=== PATIENT | male | born 1975 | race American Indian/Alaskan Native ===

== ENCOUNTER 2020-02-06 09:56 | Inpatient (IN) | payer OTHER ==
[2020-02-06] MEDS ORDERED: methylPREDNISolone Sod Succinate 125 MG/2 ML INJ IV ONE (10:23)
[2020-02-06] MEDS ORDERED: ONDANSETRON 4 MG/2 ML INJ IV ONE (10:23)
[2020-02-06] MEDS ORDERED: cefTRIAXone/NS 1 GM/50 ML 1 GM/50 ML BAG IV ONE (10:23)
[2020-02-06] MEDS ORDERED: SODIUM CHLORIDE 0.9% 1000 ML 1,000 ML IV ONE (10:23)
--- NOTE | 2020-02-06 10:26 | Emergency Department Report ---
HPI - General Time Seen by Provider: 02/06/20 10:06 - HPI HPI: This is a 44-year-old -Citizen Of [place] male presents to the emergency department via EMS from home with the complaint of shortness of breath, nausea with vomiting, fever, body aches, chills and is known to be Covid positive. Patient has had the symptoms getting progressively worse over the past 5 to 6 days and was just recently diagnosed to be positive for COVID-19 at [facility]. He was discharged home on azithromycin and has been taking that medication compliantly. The patient also took some Tylenol late last night, early this morning. The shortness of breath worsens with any exertion. The p atient also complains of a mixed dry and productive cough. He denies any past medical history. No recent travel or known sick contacts at home. He denies any tobacco or illicit drug use. ED Past Medical Hx - Medications Home Medications: Home Medications Medication Instructions Recorded Confirmed Last Taken Type No Known Home Medications [No 02/06/20 02/06/20 Unknown History Reported Home Medications] ED Review of Systems ROS: Stated complaint: FEVER/COVID Other details as noted in HPI Comment: All other systems reviewed and negative Constitutional: chills, fever, weakness Eyes: denies: eye pain, vision change ENT: denies: ear pain, throat pain Respiratory: cough, shortness of breath Cardiovascular: palpitations. denies: edema Gastrointestinal: nausea, vomiting. denies: abdominal pain Genitourinary: denies: dysuria, discharge Musculoskeletal: back pain, myalgia. denies: joint swelling Skin: denies: rash, lesions Neurological: denies: numbness, paresthesias Physical Exam - Physical Exam Physical Exam: GENERAL: Patient is ill-appearing. HENT: Normocephalic. Atraumatic. Patient has moist mucous membranes. EYES: Extraocular motions are intact. NECK: Supple. Trachea is midline. CHEST/LUNGS: Mild rhonchi heard bilaterally. There is tachypnea and accessory muscle use. Conversational dyspnea. HEART/CARDIOVASCULAR: Regular. There is mild tachycardia. There is no murmur. ABDOMEN: Abdomen is soft, nontender. Patient has normal bowel sounds. There is no abdominal distention. SKIN: Skin is warm and dry. NEURO: The patient is awake, alert, and oriented. The patient is cooperative. The patient has no focal neurologic deficits. Normal speech. MUSCULOSKELETAL: There is no tenderness or deformity. There is no limitation range of motion. ED Medical Decision Making - Lab Data Result diagrams: 02/06/20 10:34 02/06/20 10:34 Lab Results 02/06/20 02/06/20 02/06/20 Range/Units 10:34 10:34 10:34 WBC (4.5-11.0) K/mm3 RBC (3.65-5.03) M/mm3 Hgb (11.8-15.2) gm/dl Hct (35.5-45.6) % MCV (84-94) fl MCH (28-32) pg MCHC (32-34) % RDW (13.2-15.2) % Plt Count (140-440) K/mm3 Lymph % (Auto) (13.4-35.0) % [place] % (Auto) (0.0-7.3) % Eos % (Auto) (0.0-4.3) % Baso % (Auto) (0.0-1.8) % Lymph # (Auto) (1.2-5.4) K/mm3 [place] # (Auto) (0.0-0.8) K/mm3 Eos # (Auto) (0.0-0.4) K/mm3 Baso # (Auto) (0.0-0.1) K/mm3 Seg Neutrophils % (40.0-70.0) % Seg Neutrophils # (1.8-7.7) K/mm3 PT 14.3 (12.2-14.9) Sec. INR 1.12 (0.87-1.13) D-Dimer 725.16 H (0-234) ng/mlDDU Sodium (137-145) mmol/L Potassium (3.6-5.0) mmol/L Chloride (98-107) mmol/L Carbon Dioxide (22-30) mmol/L Anion Gap mmol/L BUN (9-20) mg/dL Creatinine (0.8-1.3) mg/dL Estimated GFR ml/min BUN/Creatinine Ratio % Glucose (75-100) mg/dL Lactic Acid (0.7-2.0) mmol/L Calcium (8.4-10.2) mg/dL Ferritin 1239.0 H (30.0-300.0) ng/mL Total Bilirubin (0.1-1.2) mg/dL AST (5-40) units/L ALT (7-56) units/L Alkaline Phosphatase (35-129) units/L Lactate Dehydrogenase 386 H (91-180) units/L Troponin T (0.00-0.029) ng/mL C-Reactive Protein 2.40 H (0.00-1.30) mg/dL NT-Pro-B Natriuret Pep (0-450) pg/mL Total Protein (6.3-8.2) g/dL Albumin (3.9-5) g/dL Albumin/Globulin Ratio % Procalcitonin (<0.15) ng/mL 02/06/20 02/06/20 02/06/20 Range/Units 10:34 10:34 10:34 WBC 5.2 (4.5-11.0) K/mm3 RBC 4.47 (3.65-5.03) M/mm3 Hgb 14.8 (11.8-15.2) gm/dl Hct 42.4 (35.5-45.6) % MCV 95 H (84-94) fl MCH 33 H (28-32) pg MCHC 35 H (32-34) % RDW 13.5 (13.2-15.2) % Plt Count 164 (140-440) K/mm3 Lymph % (Auto) 14.8 (13.4-35.0) % [place] % (Auto) 6.2 (0.0-7.3) % Eos % (Auto) 0.0 (0.0-4.3) % Baso % (Auto) 0.2 (0.0-1.8) % Lymph # (Auto) 0.8 L (1.2-5.4) K/mm3 [place] # (Auto) 0.3 (0.0-0.8) K/mm3 Eos # (Auto) 0.0 (0.0-0.4) K/mm3 Baso # (Auto) 0.0 (0.0-0.1) K/mm3 Seg Neutrophils % 78.8 H (40.0-70.0) % Seg Neutrophils # 4.1 (1.8-7.7) K/mm3 PT (12.2-14.9) Sec. INR (0.87-1.13) D-Dimer (0-234) ng/mlDDU Sodium 138 (137-145) mmol/L Potassium 3.8 (3.6-5.0) mmol/L Chloride 102.6 (98-107) mmol/L Carbon Dioxide 26 (22-30) mmol/L Anion Gap 13 mmol/L BUN 15 (9-20) mg/dL Creatinine 1.3 (0.8-1.3) mg/dL Estimated GFR > 60 ml/min BUN/Creatinine Ratio 12 % Glucose 113 H (75-100) mg/dL Lactic Acid (0.7-2.0) mmol/L Calcium 8.6 (8.4-10.2) mg/dL Ferritin (30.0-300.0) ng/mL Total Bilirubin 0.50 (0.1-1.2) mg/dL AST 75 H (5-40) units/L ALT 75 H (7-56) units/L Alkaline Phosphatase 46 (35-129) units/L Lactate Dehydrogenase (91-180) units/L Troponin T < 0.010 (0.00-0.029) ng/mL C-Reactive Protein (0.00-1.30) mg/dL NT-Pro-B Natriuret Pep (0-450) pg/mL Total Protein 8.0 (6.3-8.2) g/dL Albumin 3.7 L (3.9-5) g/dL Albumin/Globulin Ratio 0.9 % Procalcitonin 0.07 (<0.15) ng/mL 02/06/20 02/06/20 Range/Units 10:34 10:34 WBC (4.5-11.0) K/mm3 RBC (3.65-5.03) M/mm3 Hgb (11.8-15.2) gm/dl Hct (35.5-45.6) % MCV (84-94) fl MCH (28-32) pg MCHC (32-34) % RDW (13.2-15.2) % Plt Count (140-440) K/mm3 Lymph % (Auto) (13.4-35.0) % [place] % (Auto) (0.0-7.3) % Eos % (Auto) (0.0-4.3) % Baso % (Auto) (0.0-1.8) % Lymph # (Auto) (1.2-5.4) K/mm3 [place] # (Auto) (0.0-0.8) K/mm3 Eos # (Auto) (0.0-0.4) K/mm3 Baso # (Auto) (0.0-0.1) K/mm3 Seg Neutrophils % (40.0-70.0) % Seg Neutrophils # (1.8-7.7) K/mm3 PT (12.2-14.9) Sec. INR (0.87-1.13) D-Dimer (0-234) ng/mlDDU Sodium (137-145) mmol/L Potassium (3.6-5.0) mmol/L Chloride (98-107) mmol/L Carbon Dioxide (22-30) mmol/L Anion Gap mmol/L BUN (9-20) mg/dL Creatinine (0.8-1.3) mg/dL Estimated GFR ml/min BUN/Creatinine Ratio % Glucose (75-100) mg/dL Lactic Acid 1.70 (0.7-2.0) mmol/L Calcium (8.4-10.2) mg/dL Ferritin (30.0-300.0) ng/mL Total Bilirubin (0.1-1.2) mg/dL AST (5-40) units/L ALT (7-56) units/L Alkaline Phosphatase (35-129) units/L Lactate Dehydrogenase (91-180) units/L Troponin T (0.00-0.029) ng/mL C-Reactive Protein (0.00-1.30) mg/dL NT-Pro-B Natriuret Pep 23.94 (0-450) pg/mL Total Protein (6.3-8.2) g/dL Albumin (3.9-5) g/dL Albumin/Globulin Ratio % Procalcitonin (<0.15) ng/mL - EKG Data -: EKG Interpreted by [facility] EKG shows normal: sinus rhythm, axis, intervals, QRS complexes (LVH), ST-T waves Rate: tachycardia (101 bpm) - EKG Data When compared to previous EKG there are: previous EKG unavailable Interpretation: other (Sinus rhythm, rate of 101 bpm, normal axis, normal intervals, LVH. No ST elevation NV.) - Radiology Data Radiology results: image reviewed interpreted by me: Chest x-ray shows bilateral patchy infiltrates concerning for pneumonia. No cardiomegaly. No pneumothorax. - Medical Decision Making This patient presents to the emergency department with progressively worsening shortness of breath, fatigue, nausea and vomiting after recently being diagnosed with COVID-19. On examination the patient does appear in mild respiratory distress while on room air as the patient displays tachypnea, conversational dyspnea and some accessory muscle use. Initially the patient's room air pulse ox was 92%. He was placed on 3 L oxygen via nasal cannula with some improvement of both his work of breathing and the pulse ox. The patient later was tested with exertion and an ambulatory pulse ox and went down into the high 80s for oxygen saturation after only a few steps. Chest x-ray shows bilateral patchy infiltrates consistent with an atypical pneumonia and consistent with COVID-19. Patient's labs also appear consistent with COVID-19 with elevated inflammatory markers such as D-dimer, ferritin, LDH and CRP. Patient was given IV fluid r esuscitation, Solu-Medrol, Rocephin, azithromycin. He will be admitted to the hospital for further evaluation and treatment and was accepted for admission by the hospitalist, Dr. Milian. Critical Care Time: Yes Critical care time in (mins) excluding proc time.: 35 Critical care attestation.: If time is entered above; I have spent that time in minutes in the direct care of this critically ill patient, excluding procedure time. Critical care time spent on this patient in doing his initial evaluation, multiple reevaluations, ordering and interpretation of labs and imaging, supplemental oxygen for his hypoxia, IV steroids and antibiotics, IV fluid resuscitation, discussions with the hospitalist, multiple discussions with the patient. Critical Care Time: 35 minutes ED Disposition Clinical Impression: Pneumonia due to COVID-19 virus, Hypoxia, Acute respiratory failure due to COVID-19 Disposition: DC-09 OP ADMIT IP TO THIS HOSP Is pt being admited?: Yes Condition: Serious Time of Disposition: 14:45
[2020-02-06] MEDS ORDERED: ACETAMINOPHEN 500 MG TAB PO ONE (10:45)
[2020-02-06 11:08] LABS: Basophils % (Auto) 0.2 % (0.0-1.8); Hematocrit 42.4 % (35.5-45.6); Hemoglobin 14.8 gm/dl (11.8-15.2); Lymphocytes # (Auto) 0.8 K/mm3 (1.2-5.4); Lymphocytes % (Auto) 14.8 % (13.4-35.0); Mean Corpuscular HGB Conc 35 % (32-34); Mean Corpuscular Volume 95 fl (84-94); Monocytes # (Auto) 0.3 K/mm3 (0.0-0.8); Monocytes % (Auto) 6.2 % (0.0-7.3); Platelet Count 164 K/mm3 (140-440); Red Blood Count 4.47 M/mm3 (3.65-5.03); Red Cell Distribution Width 13.5 % (13.2-15.2)
[2020-02-06] MEDS: AZITHROMYCIN 500 MG in SODIUM CHLORIDE 0.9% 250ML 250 ML IV ONE ×2 (11:16→14:52)
[2020-02-06 11:17] LABS: INR 1.12 (0.87-1.13)
--- NOTE | 2020-02-06 11:21 | XRay Report ---
CHEST 1 VIEW 10:32 AM INDICATION / CLINICAL INFORMATION: SOB. COMPARISON: None available. FINDINGS: SUPPORT DEVICES: None. HEART / MEDIASTINUM: The heart size and pulmonary vasculature are normal. LUNGS / PLEURA: There are mild subtle multifocal areas of patchy parenchymal opacity in the right mid to lower lung. There is questionable minimal disease on the left. No pleural effusion. No pneumothor ax. ADDITIONAL FINDINGS: No significant additional findings. IMPRESSION: Mild patchy multifocal parenchymal opacities predominantly on the right. Atypical causes of pneumonia, including viral pneumonia, should be considered. Signer Name: Sanjay Angel MD Signed: 02/06/2020 11:17 AM Workstation Name: [id number]
[2020-02-06 11:29] LABS: Alanine Aminotransferase 75 units/L (7-56); Albumin 3.7 g/dL (3.9-5); BUN/Creatinine Ratio 12; Blood Urea Nitrogen 15 mg/dL (9-20); C-Reactive Protein 2.4 mg/dL (0.00-1.30); Calcium 8.6 mg/dL (8.4-10.2); Hemolysis Index 3
[2020-02-06] MEDS ORDERED: KETOROLAC 30 MG/1 ML INJ IV ONE (11:37)
[2020-02-06] MEDS ORDERED: MORPHINE 4 MG/1 ML INJ IV ONE (12:38)
--- NOTE | 2020-02-06 12:56 | History and Physical Report ---
History of Present Illness Chief complaint: I cant breathe History of present illness: 44 YO Male with Obesity Hypoventilation Syndrome, Coronavirus Infection presents to ED for evaluation. Patient states that he has been "feeling terrible" over the past 6 days with persistently worsening symptoms over the same timeframe. Patient was diagnosed with coronavirus infection at the [facility] approximately 1 week ago and was subsequently discharged home on oral antibiotic therapy. Patient reports compliance with outpatient management with development of the aforementioned worsening symptoms during the same timeframe. Patient knowledges fever, shortness of breath, dry cough, malaise, decreased exercise tolerance, body aches. Patient transported to [facility] via private vehicle for further care and evaluation of the aforementioned symptoms. Patient seen and evaluated in the emergency department. All lab and imaging studies reviewed. Patient found to have fever to 103.0 F, tachypnea with a respiratory rate of 38, a pulse oximetry of 86% with exertion which is consistent with acute hypoxemic respiratory failure. Patient found to have pneumonia complicated by sepsis. Patient admitted to medical floor and initiated on sepsis as well as pneumonia protocols. Patient also initiated on coronavirus protocol. Patient denies chest pain, palpitation, skin rash, recent ill contacts, prolonged travel/immobility, unilateral leg swelling, calf pain, individual/family history of DVT/PE/bleeding/blood clotting disorders. No prior admission for review. No medication listed for reconciliation at time of admission. Past History Past Medical History: No medical history, other (Reviewed) Past Surgical History: No surgical history, Other (Reviewed) Social history: , lives with family. denies: smoking, alcohol abuse Family history: diabetes, hypertension Medications and Allergies Allergies Allergy/AdvReac Type Severity Reaction Status Date / Time No Known Allergies Allergy Unverified 02/06/20 10:33 Home Medications Medication Instructions Recorded Confirmed Last Taken Type No Known Home Medications [No 02/06/20 02/06/20 Unknown History Reported Home Medications] Active Meds: Active Medications Sodium Chloride (Nacl 0.9% 1000 Ml) 1,000 mls @ 250 mls/hr IV ONCE ONE Stop: 02/06/20 14:22 Last Admin: 02/06/20 10:42 Dose: 250 mls/hr Documented by: Review of Systems Constitutional: fever, fatigue, weakness, malaise Ears, nose, mouth and throat: no ear pain, no ear discharge, no tinnitis, no decreased hearing, no nose pain Cardiovascular: no chest pain, no orthopnea, no palpitations Respiratory: cough, cough with sputum, shortness of breath Gastrointestinal: no abdominal pain, no nausea, no vomiting, no diarrhea Genitourinary Male: no hematuria, no flank pain, no discharge, no urinary frequency, no urinary hesitancy Rectal: no pain, no incontinence, no bleeding Musculoskeletal: no neck pain, no arm numbness/tingling, no low back pain, no shooting leg pain Integumentary: no rash, no pruritis, no redness, no sores, no wounds Neurological: no head injury, no transient paralysis, no weakness, no parathesias, no tingling, no seizures Psychiatric: no anxiety, no memory loss, no sleep disturbances, no insomnia, no hypersomnia, no suicidal ideation Endocrine: no cold intolerance, no polyphagia, no excessive thirst, no polydipsia, no nocturia Hematologic/Lymphatic: no easy bruising, no easy bleeding, no lymphadenopathy Allergic/Immunologic: no urticaria, no persistent infections, no angioedema Exam - Constitutional Vitals: Temp Pulse Resp BP Pulse Ox 100.1 F H 101 H 28 H 161/84 94 02/06/20 12:19 02/06/20 12:39 02/06/20 12:39 02/06/20 12:39 02/06/20 12:39 General appearance: Present: mild distress - EENT Eyes: Present: PERRL ENT: hearing intact, clear oral mucosa - Neck Neck: Present: supple, normal ROM - Respiratory Respiratory effort: labored, accessory muscle use, stridor Respiratory: bilateral: diminished, rhonchi - Cardiovascular Rhythm: other (Tachycardia) Heart Sounds: Present: S1 & S2. Absent: rub, click - Extremities Extremities: pulses symmetrical, No edema Peripheral Pulses: abnormal (Capillary refill greater than 3.5 seconds) - Abdominal General gastrointestinal: Present: soft, non-tender, non-distended, normal bowel sounds Male genitourinary: Present: normal - Integumentary Integumentary: Present: dry, clammy, decreased turgor - Musculoskeletal Musculoskeletal: generalized weakness - Psychiatric Psychiatric: appropriate mood/affect, intact judgment & insight - Neurologic Neurologic: CNII-XII intact, moves all extremities HEART Score - HEART Score Troponin: Troponin T < 0.010 ng/mL (0.00-0.029) 02/06/20 10:34 Results - Labs CBC & Chem 7: 02/06/20 10:34 02/06/20 13:47 Labs: Abnormal lab results 02/06/20 02/06/20 02/06/20 Range/Units 10:34 10:34 10:34 MCV (84-94) fl MCH (28-32) pg MCHC (32-34) % Lymph # (Auto) (1.2-5.4) K/mm3 Seg Neutrophils % (40.0-70.0) % D-Dimer 725.16 H (0-234) ng/mlDDU Glucose (75-100) mg/dL Ferritin 1239.0 H (30.0-300.0) ng/mL AST (5-40) units/L ALT (7-56) units/L Lactate Dehydrogenase 386 H (91-180) units/L C-Reactive Protein 2.40 H (0.00-1.30) mg/dL Albumin (3.9-5) g/dL 02/06/20 02/06/20 Range/Units 10:34 10:34 MCV 95 H (84-94) fl MCH 33 H (28-32) pg MCHC 35 H (32-34) % Lymph # (Auto) 0.8 L (1.2-5.4) K/mm3 Seg Neutrophils % 78.8 H (40.0-70.0) % D-Dimer (0-234) ng/mlDDU Glucose 113 H (75-100) mg/dL Ferritin (30.0-300.0) ng/mL AST 75 H (5-40) units/L ALT 75 H (7-56) units/L Lactate Dehydrogenase (91-180) units/L C-Reactive Protein (0.00-1.30) mg/dL Albumin 3.7 L (3.9-5) g/dL Assessment and Plan - Patient Problems (1) Sepsis Current Visit: Yes Status: Acute Plan to address problem: Sepsis protocol: CBC, CMP, chest x-ray, urinalysis, IV antibiotic therapy, monitor urine output every shift, serial lactic acid level, blood culture, maintain mean arterial pressure greater than or equal to 65, hold aggressive IV fluid resuscitation therapy due to coronavirus infection. (2) Acute hypoxemic respiratory failure Current Visit: Yes Status: Acute Plan to address problem: Chest x-ray, supplemental oxygen, pulse oximetry, nebulizer therapy, prone positioning while in bed, pulmonary toilet, (3) Pneumonia Current Visit: Yes Status: Acute Plan to address problem: Pneumonia protocol: Chest x-ray, CBC, CMP, supplemental oxygen, pulse oximetry, blood culture, IV antibiotic therapy. (4) Coronavirus infection Current Visit: Yes Status: Acute Plan to address problem: Coronavirus protocol: Contact precautions, isolation precautions, IV antibiotic therapy, IV steroid therapy, supportive care, prone positioning while in bed, (5) Obesity hypoventilation syndrome Current Visit: Yes Status: Acute Plan to address problem: Balanced diet, increase physical activity discharge, outpatient pulmonary follow-up for sleep study. Noninvasive positive pressure ventilation as clinically indicated. (6) DVT prophylaxis Current Visit: Yes Status: Acute Plan to address problem: SCD to bilateral lower extremities while in bed, prophylactic heparin.
[2020-02-06] MEDS ORDERED: ALBUTEROL 2.5 MG/3 ML NEBU IH PRN (12:58)
[2020-02-06] MEDS ORDERED: ACETAMINOPHEN 325 MG TAB PO PRN ×2 (12:58)
[2020-02-06] MEDS ORDERED: ONDANSETRON 4 MG/2 ML INJ IV PRN (12:58)
[2020-02-06] MEDS ORDERED: HYDROmorphone 1 MG/1 ML INJ IV PRN (12:58)
[2020-02-06] MEDS: AZITHROMYCIN 500 MG in SODIUM CHLORIDE 0.9% 250ML 250 ML IV SCH (14:50)
[2020-02-06 14:55] LABS: C-Reactive Protein 2.6 mg/dL (0.00-1.30)
[2020-02-06 20:46] LABS: C-Reactive Protein 3.5 mg/dL (0.00-1.30)
[2020-02-06] MEDS: HEPARIN 5,000 UNIT/1 ML VIAL SUB-Q SCH (22:26)
[2020-02-06] MEDS: methylPREDNISolone Sod Succinate 40 MG/1 ML INJ IV SCH (22:27)
[2020-02-06] MEDS: FAMOTIDINE 10 MG TAB PO SCH (22:28)
[2020-02-07] MEDS: methylPREDNISolone Sod Succinate 40 MG/1 ML INJ IV SCH ×3 (05:05→22:20)
[2020-02-07 09:15] LABS: Basophils % (Auto) 0.2 % (0.0-1.8); Hematocrit 44.2 % (35.5-45.6); Hemoglobin 15.4 gm/dl (11.8-15.2); Lymphocytes % (Auto) 27.5 % (13.4-35.0); Mean Corpuscular HGB Conc 35 % (32-34); Mean Corpuscular Volume 95 fl (84-94); Monocytes # (Auto) 0.3 K/mm3 (0.0-0.8); Monocytes % (Auto) 7.1 % (0.0-7.3); Platelet Count 193 K/mm3 (140-440); Red Blood Count 4.65 M/mm3 (3.65-5.03); Red Cell Distribution Width 13.7 % (13.2-15.2)
[2020-02-07 09:17] LABS: BUN/Creatinine Ratio 17; Blood Urea Nitrogen 19 mg/dL (9-20); Calcium 8.8 mg/dL (8.4-10.2); Hemolysis Index 7
[2020-02-07] MEDS: FAMOTIDINE 10 MG TAB PO SCH ×2 (09:17→21:31)
[2020-02-07] MEDS: HEPARIN 5,000 UNIT/1 ML VIAL SUB-Q SCH ×2 (09:18→21:31)
[2020-02-07] MEDS: cefTRIAXone/NS 2 GM/100 ML 2 GM/100 ML BAG IV SCH (09:18)
--- NOTE | 2020-02-07 11:34 | Progress Note ---
Assessment and Plan Assessment and plan: ----Acute hypoxemic respiratory failure Current Visit: Yes Status: Acute Plan to address problem: Chest x-ray, supplemental oxygen, pulse oximetry, nebulizer therapy, prone positioning while in bed, pulmonary toilet, --- Covid pneumonia Current Visit: Yes Status: Acute Plan to address problem: Continue antibiotics Steroids ID consulted Monitor inflammatory markers Prone positioning if able ---Obesity hypoventilation syndrome Current Visit: Yes Status: Acute Plan to address problem: Balanced diet, increase physical activity discharge, outpatient pulmonary follow-up for sleep study. Noninvasive positive pressure ventilation as clinically indicated. ---DVT prophylaxis Current Visit: Yes Status: Acute Plan to address problem: SCD to bilateral lower extremities while in bed, prophylactic heparin. History Interval history: Patient feels better this morning Remains on oxygen ID consulted On steroids Hospitalist Physical - Physical exam Narrative exam: VITAL SIGNS: Reviewed. GENERAL: Awake HEAD: No signs of head trauma. EYES: Pupils are equal. Extraocular motions intact. MOUTH: Oropharynx is normal. NECK: No adenopathy, no JVD. CHEST: Chest with diminished breath sounds bilaterally. No wheezes, rales, or rhonchi. CARDIAC: normal S1 and S2, without murmurs, gallops, or rubs. ABDOMEN: Soft, non tender and non distended. No rebound or guarding, and no masses palpated. Bowel Sounds normal. MUSCULOSKELETAL: No edema NEUROLOGIC EXAM: Alert and oriented x3. No focal neurologic deficits SKIN: No obvious lesions - Constitutional Vitals: Temp Pulse Resp BP Pulse Ox 99.2 F 78 18 126/80 94 02/07/20 04:07 02/07/20 04:07 02/07/20 04:07 02/07/20 04:07 02/07/20 04:07 HEART Score - HEART Score Troponin: Troponin T < 0.010 ng/mL (0.00-0.029) 02/06/20 10:34 Results - Labs CBC & Chem 7: 02/07/20 08:29 02/07/20 08:29 Labs: Laboratory Last Values WBC 3.7 K/mm3 (4.5-11.0) L 02/07/20 08:29 RBC 4.65 M/mm3 (3.65-5.03) 02/07/20 08:29 Hgb 15.4 gm/dl (11.8-15.2) H 02/07/20 08: Hct 44.2 % (35.5-45.6) 02/07/20 08: MCV 95 fl (84-94) H 02/07/20 08: MCH 33 pg (28-32) H 02/07/20 08: MCHC 35 % (32-34) H 02/07/20 08: RDW 13.7 % (13.2-15.2) 02/07/20 08: Plt Count 193 K/mm3 (140-440) 02/07/20 08: Lymph % (Auto) 27.5 % (13.4-35.0) 02/07/20 08: [place] % (Auto) 7.1 % (0.0-7.3) 02/07/20 08: Eos % (Auto) 0.0 % (0.0-4.3) 02/07/20 08: Baso % (Auto) 0.2 % (0.0-1.8) 02/07/20 08: Lymph # (Auto) 1.0 K/mm3 (1.2-5.4) L 02/07/20 08:29 [place] # (Auto) 0.3 K/mm3 (0.0-0.8) 02/07/20 08: Eos # (Auto) 0.0 K/mm3 (0.0-0.4) 02/07/20 08: Baso # (Auto) 0.0 K/mm3 (0.0-0.1) 02/07/20 08: Seg Neutrophils % 65.2 % (40.0-70.0) 02/07/20 08: Seg Neutrophils # 2.4 K/mm3 (1.8-7.7) 02/07/20 08: PT 14.3 Sec. (12.2-14.9) 02/06/20 10:34 INR 1.12 (0.87-1.13) 02/06/20 10:34 D-Dimer 594.54 ng/mlDDU (0-234) H 02/06/20 20:07 Sodium 136 mmol/L (137-145) L 02/07/20 08:29 Potassium 4.5 mmol/L (3.6-5.0) 02/07/20 08:29 Chloride 100.6 mmol/L (98-107) 02/07/20 08:29 Carbon Dioxide 26 mmol/L (22-30) 02/07/20 08:29 Anion Gap 14 mmol/L 02/07/20 08:29 BUN 19 mg/dL (9-20) 02/07/20 08:29 Creatinine 1.1 mg/dL (0.8-1.3) 02/07/20 08:29 Estimated GFR > 60 ml/min 02/07/20 08:29 BUN/Creatinine Ratio 17 % 02/07/20 08:29 Glucose 125 mg/dL (75-100) H 02/07/20 08:29 Lactic Acid 1.10 mmol/L (0.7-2.0) 02/06/20 23:05 Calcium 8.8 mg/dL (8.4-10.2) 02/07/20 08:29 Ferritin 1248.0 ng/mL (30.0-300.0) H 02/06/20 20:07 Total Bilirubin 0.50 mg/dL (0.1-1.2) 02/06/20 10:34 AST 75 units/L (5-40) H 02/06/20 10:34 ALT 75 units/L (7-56) H 02/06/20 10:34 Alkaline Phosphatase 46 units/L (35-129) 02/06/20 10:34 Lactate Dehydrogenase 386 units/L (91-180) H 02/06/20 20:07 Troponin T < 0.010 ng/mL (0.00-0.029) 02/06/20 10:34 C-Reactive Protein 3.50 mg/dL (0.00-1.30) H 02/06/20 20:07 NT-Pro-B Natriuret Pep 23.94 pg/mL (0-450) 02/06/20 10:34 Total Protein 8.0 g/dL (6.3-8.2) 02/06/20 10:34 Albumin 3.7 g/dL (3.9-5) L 02/06/20 10:34 Albumin/Globulin Ratio 0.9 % 02/06/20 10:34 Procalcitonin 0.14 ng/mL (<0.15) 02/06/20 20:07 Coronavirus (PCR) Positive (Negative) A 02/06/20 10:36 Microbiology: Microbiology 02/06/20 10:34 Peripheral/Venous Blood Culture - Preliminary Culture in Progress 02/06/20 10:34 Peripheral/Venous Blood Culture - Preliminary Culture in Progress [place]/IV: Voiding Method Toilet IV Catheter Type [Left INT / Saline Lock Antecubital] Active Medications - Current Medications Current Medications: Generic Name Dose Route Start Last Admin Trade Name Freq PRN Reason Stop Dose Admin Acetaminophen 650 mg 02/06/20 12:58 Acetaminophen 325 Mg Tab PO Q4H PRN Pain MILD(1-3)/Fever >100.5/OSBORN Albuterol 2.5 mg 02/06/20 12:58 Albuterol 2.5 Mg/3 Ml Nebu IH Q4HRT PRN Shortness Of Breath Famotidine 10 mg 02/06/20 22:00 02/07/20 09:17 Famotidine 10 Mg Tab PO 10 mg BID JENNIFER Administration Heparin Sodium (Porcine) 5,000 unit 02/06/20 22:00 02/07/20 09:18 Heparin 5,000 Unit/1 Ml Vial SUB-Q 5,000 unit Q12HR JENNIFER Administration Hydromorphone HCl 0.25 mg 02/06/20 12:58 02/06/20 14:09 Hydromorphone 1 Mg/1 Ml Inj IV 0.25 mg Q4H PRN Administration Pain, Moderate (4-6) Ceftriaxone Sodium 2 gm in 100 mls @ 200 mls/hr 02/07/20 10:00 02/07/20 09:18 Rocephin/Ns 2 Gm/100 Ml IV 200 mls/hr Q24H JENNIFER Administration Protocol Azithromycin 500 mg/ Sodium 250 mls @ 250 mls/hr 02/06/20 13:00 02/06/20 14:50 Chloride IV 250 mls/hr Q24H JENNIFER Administration Protocol Methylprednisolone Sodium Succinate 40 mg 02/06/20 22:00 02/07/20 05:05 Methylprednisolone Sod Succinate 40 Mg/1 Ml Inj IV 40 mg Q8H JENNIFER Administration Ondansetron HCl 4 mg 02/06/20 12:58 Ondansetron 4 Mg/2 Ml Inj IV Q8H PRN Nausea And Vomiting Sodium Chloride 10 ml 02/06/20 22:00 02/07/20 09:18 Sodium Chloride 0.9% 10 Ml Flush Syringe IV 10 ml BID JENNIFER Administration Sodium Chloride 10 ml 02/06/20 12:58 Sodium Chloride 0.9% 10 Ml Flush Syringe IV PRN PRN LINE FLUSH Nutrition/Malnutrition Assess - Dietary Evaluation Nutrition/Malnutrition Findings: Nutrition Notes Start: 02/07/20 09:28 Freq: Status: Active Protocol: Document 02/07/20 09:28 ROBIN (Rec: 02/07/20 09:37 [id number]) Nutrition Notes Need for Assessment generated from: halal butcher,MST Initial or Follow up Assessment Current Diagnosis Sepsis Other Pertinent Diagnosis COVID, acute respiratory failure, pneunomia Current Diet Cardiac, consistent CHO Labs/Tests Na 136 Pertinent Medications Solu-Medrol Height 5 ft 10 in Weight 104.326 kg Usual Body Weight 109.54 kg [place] Body Weight (kg) 75.45 BMI 33.0 Intake Prior to Admission Poor Weight change and time frame 5% in two weeks Weight Status Obese Subjective/Other Information RN screen for MST. Pt reports eating only a can of soup a day [employer] REPAIR[employer] for a week. Pt reports appetite is better now and ate 50% of breakfast. Pt reports last episode of vomiting was yesterday morning . 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 No Is Patient Ambulatory and/or Out of Bed Yes REE-([place]-St. Jeor-ambulatory/OOB) [ 2534.363 NUTR.MSJOOB] Kcal/Kg value to use for calculation 19 Approximate Energy Requirements Using 1982 kcal/Kg Calculation Used for Recommendations Kcal/kg Additional Notes Pro: 108-135g (1.2-1.5g/kg AdjBW 90kg) Fluid: 1 ml/kcal Nutrition Intervention Change Diet Order: Continue current Add Supplement/Snack (indicate name/kcal Ensure High Protein BID /protein ) Provides kCal: 320 Provides Protein (gm) 32 Goal #1 Meet at least 75% of protein and energy needs via PO and ONS intakes Anticipated Discharge Needs: Cardiac Follow-Up By: 02/09/20 Additional Comments FU for intakes, ONS tolerance/ need
[2020-02-07] MEDS: AZITHROMYCIN 500 MG in SODIUM CHLORIDE 0.9% 250ML 250 ML IV SCH (14:07)
--- NOTE | 2020-02-07 15:36 | Consultation ---
History of Present Illness - Reason for Consult Consult date: 02/07/20 COVID-19 Requesting physician: GUMARO APARICIO - History of Present Illness 45 years old male with obesity and recent diagnosis of COVID-19 infection, admitted on secondary to 6-day history of worsening fever, dry cough, body aches, generalized malaise, dyspnea on exertion and shortness of breath. Joshua perry tested positive for COVID-19 a week before admission. On arrival, temperature 103, O2 sat 86% with exertion. Initial WBC 3.7. D-dimer 725. Lactate 3.3. AST 75, ALT 75. Procalcitonin 0.07. Chest x-ray shows patchy multifocal pneumonia. Blood cultures no growth today. O2 sats dropped to 92%, patient currently on 2 L nasal cannula. Review of Systems: reviewed ED and H&P notes. Deferred to prevent COVID-19 transmission. Past History Past Medical History: No medical history, other (Reviewed) Past Surgical History: No surgical history, Other (Reviewed) Social history: , lives with family. denies: smoking, alcohol abuse Family history: diabetes, hypertension Medications and Allergies Allergies Allergy/AdvReac Type Severity Reaction Status Date / Time No Known Allergies Allergy Unverified 02/06/20 10:33 Home Medications Medication Instructions Recorded Confirmed Last Taken Type No Known Home Medications [No 02/06/20 02/06/20 Unknown History Reported Home Medications] Active Meds: Active Medications Acetaminophen (Acetaminophen 325 Mg Tab) 650 mg PO Q4H PRN PRN Reason: Pain MILD(1-3)/Fever >100.5/OSBORN Albuterol (Albuterol 2.5 Mg/3 Ml Nebu) 2.5 mg IH Q4HRT PRN PRN Reason: Shortness Of Breath Famotidine (Famotidine 10 Mg Tab) 10 mg PO BID [facility] Last Admin: 02/07/20 09:17 Dose: 10 mg Documented by: Heparin Sodium (Porcine) (Heparin 5,000 Unit/1 Ml Vial) 5,000 unit SUB-Q Q12HR [facility] Last Admin: 02/07/20 09:18 Dose: 5,000 unit Documented by: Hydromorphone HCl (Hydromorphone 1 Mg/1 Ml Inj) 0.25 mg IV Q4H PRN PRN Reason: Pain, Moderate (4-6) Last Admin: 02/06/20 14:09 Dose: 0.25 mg Documented by: Ceftriaxone Sodium (Rocephin/Ns 2 Gm/100 Ml) 2 gm in 100 mls @ 200 mls/hr IV Q24H [facility]; Protocol Last Admin: 02/07/20 09:18 Dose: 200 mls/hr Documented by: Azithromycin 500 mg/ Sodium (Chloride) 250 mls @ 250 mls/hr IV Q24H JENNIFER; Protocol Last Admin: 02/07/20 14:07 Dose: 250 mls/hr Documented by: Methylprednisolone Sodium Succinate (Methylprednisolone Sod Succinate 40 Mg/1 Ml Inj) 40 mg IV Q8H JENNIFER Last Admin: 02/07/20 14:07 Dose: 40 mg Documented by: Ondansetron HCl (Ondansetron 4 Mg/2 Ml Inj) 4 mg IV Q8H PRN PRN Reason: Nausea And Vomiting Sodium Chloride (Sodium Chloride 0.9% 10 Ml Flush Syringe) 10 ml IV BID [facility] Last Admin: 02/07/20 09:18 Dose: 10 ml Documented by: Sodium Chloride (Sodium Chloride 0.9% 10 Ml Flush Syringe) 10 ml IV PRN PRN PRN Reason: LINE FLUSH Physical Examination - Physical Exam Narrative exam: Deferred to minimize COVID-19 transmission in the setting of pandemic. - Constitutional Vitals: Vital Signs Temp Pulse Resp BP Pulse Ox 99.0 F 79 19 129/83 93 02/07/20 12:58 02/07/20 12:58 02/07/20 12:58 02/07/20 12:58 02/07/20 12:58 Temperature -Last 24 Hours Temperature 99.0 F Temperature 99.2 F Temperature 98.9 F Temperature 98.1 F Results - Labs CBC & Chem 7: 02/07/20 08:29 02/07/20 08:29 Labs: Abnormal lab results 02/06/20 02/06/20 02/06/20 Range/Units 20:07 20:07 20:07 WBC (4.5-11.0) K/mm3 Hgb (11.8-15.2) gm/dl MCV (84-94) fl MCH (28-32) pg MCHC (32-34) % Lymph # (Auto) (1.2-5.4) K/mm3 D-Dimer 594.54 H (0-234) ng/mlDDU Sodium (137-145) mmol/L Glucose 135 H (75-100) mg/dL Lactic Acid 3.30 H* (0.7-2.0) mmol/L Ferritin (30.0-300.0) ng/mL Lactate Dehydrogenase 386 H (91-180) units/L C-Reactive Protein 3.50 H (0.00-1.30) mg/dL 02/06/20 02/07/20 02/07/20 Range/Units 20:07 08:29 08:29 WBC 3.7 L (4.5-11.0) K/mm3 Hgb 15.4 H (11.8-15.2) gm/dl MCV 95 H (84-94) fl MCH 33 H (28-32) pg MCHC 35 H (32-34) % Lymph # (Auto) 1.0 L (1.2-5.4) K/mm3 D-Dimer (0-234) ng/mlDDU Sodium 136 L (137-145) mmol/L Glucose 125 H (75-100) mg/dL Lactic Acid (0.7-2.0) mmol/L Ferritin 1248.0 H (30.0-300.0) ng/mL Lactate Dehydrogenase (91-180) units/L C-Reactive Protein (0.00-1.30) mg/dL Assessment and Plan Cultures: Blood culture no growth today SARS CoV2 PCR positive Assessment: 45 years old male with obesity and recent diagnosis of COVID-19 infection, admitted on secondary to 6-day history of worsening fever, dry cough, body aches, generalized malaise, dyspnea on exertion and shortness of breath. Patient tested positive for COVID-19 a week before admission: #Severe sepsis: Present on admission with high fever at 105, neutropenia, elevated LFTs, elevated lactate; likely due to bilateral pneumonia. Procalcitonin<0.2 #Severe COVID pneumonia: Chest x-ray showed bilateral multifocal pneumonia. SARS-CoV-2 PCR positive. Inflammatory markers elevated. #Acute hypoxemic respiratory failure: Initial O2 sats dropped to 92%, sats dropped to 80s upon ambulation. Patient on 2 L nasal cannula. #Elevated LFTs: from COVID Recommendations: Continue steroids daily for 10 days Start Remdesivir for 5 days Monitor inflammatory markers - ferritin, Ddimer, CRP, LDH Stop ceftriaxone and azithromycin, procalcitonin <0.25 ng/mL Monitor liver function test on Remdesivir Continue anticoagulation per System Protocol Prone positioning as possible All laboratory, cultures and imaging were reviewed Will follow Comfort Khoury MD Infectious Diseases [facility] [employer] [phone] O [phone]
[2020-02-07] MEDS ORDERED: REMDESIVIR 200 MG in SODIUM CHLORIDE 0.9% 250ML 250 ML IV ONE (17:00)
[2020-02-07] MEDS ORDERED: REMDESIVIR 100 MG VIAL IV ONE (17:00)
[2020-02-07] MEDS ORDERED: SODIUM CHLORIDE 0.9% 50 ML IVPB IV SCH (21:00)
[2020-02-08] MEDS: methylPREDNISolone Sod Succinate 40 MG/1 ML INJ IV SCH (05:04)
[2020-02-08] MEDS: cefTRIAXone/NS 2 GM/100 ML 2 GM/100 ML BAG IV SCH (10:55)
[2020-02-08] MEDS: HEPARIN 5,000 UNIT/1 ML VIAL SUB-Q SCH (10:55)
[2020-02-08] MEDS: FAMOTIDINE 10 MG TAB PO SCH (11:15)
--- NOTE | 2020-02-08 14:15 | Event Note ---
Date: 02/08/20 Continue Remdesivir, supportive care and oxygen weaning. Get ambulatory sats in AM.
--- NOTE | 2020-02-08 14:30 | Discharge Summary ---
Providers - Providers Date of Admission: 02/06/20 13:48 Date of discharge: 02/08/20 Attending physician: MERLINE CLIFTON 02/06/20 18:39 Consult to Physician [CONS] Routine Comment: Consulting Provider: VADIM RODRIGUEZ Physician Instructions: Reason For Exam: covid infection Primary care physician: SCANNING SUPERVISOR Hospitalization Condition: Serious Hospital course: HPI 44 YO Male with Obesity Hypoventilation Syndrome, Coronavirus Infection presents to ED for evaluation. Patient states that he has been "feeling terrible" over the past 6 days with persistently worsening symptoms over the same timeframe. Patient was diagnosed with coronavirus infection at the [facility] approximately 1 week ago and was subsequently discharged home on oral antibiotic therapy. Patient reports compliance with outpatient management with development of the aforementioned worsening symptoms during the same timeframe. Patient knowledges fever, shortness of breath, dry cough, malaise, decreased exercise tolerance, body aches. Patient transported to [facility] via private vehicle for further care and evaluation of the aforementioned symptoms. Patient seen and evaluated in the emergency department. All lab and imaging studies reviewed. Patient found to have fever to 103.0 F, tachypnea with a respiratory rate of 38, a pulse oximetry of 86% with exertion which is consistent with acute hypoxemic respiratory failure. Patient found to have pneumonia complicated by sepsis. Patient admitted to medical floor and initiated on sepsis as well as pneumonia protocols. Patient also initiated on coronavirus protocol. Patient denies chest pain, palpitation, skin rash, recent ill contacts, prolonged travel/immobility, unilateral leg swelling, calf pain, individual/family history of DVT/PE/bleeding/blood clotting disorders. No prior admission for review. No medication listed for reconciliation at time of admission. Hospital course Patient was started on IV steroids, antibiotics and ID was consulted. He was additionally started on remdesivir. He was maintained on oxygen supplementation and he gradually improved. He remained afebrile since admission. His cough is significantly improved. He feels great. He denies any malaise or body aches. He had a walk test performed today and he is oxygen remained 92% and above. He is very eager to go home today. He has remained afebrile for 48 hours. I believe patient is stable to go home as he is not hypoxic and he feels great subjectively. He will be discharged on dexamethasone and will follow up with his PCP in 2 weeks. He has been advised to return today ER if he starts having worsening symptoms and he agrees with treatment plan. Disposition: DC-01 TO HOME OR SELFCARE Time spent for discharge: 35 minutes - Discharge Diagnoses (1) Acute hypoxemic respiratory failure Status: Acute (2) Acute respiratory failure due to COVID-19 Status: Acute (3) Pneumonia due to COVID-19 virus Status: Acute Core Measure Documentation - Palliative Care Palliative Care/ Comfort Measures: Not Applicable - Core Measures Any of the following diagnoses?: none Exam - Physical Exam Narrative exam: VITAL SIGNS: Reviewed. GENERAL: Awake HEAD: No signs of head trauma. EYES: Pupils are equal. Extraocular motions intact. MOUTH: Oropharynx is normal. NECK: No adenopathy, no JVD. CHEST: Chest with diminished breath sounds bilaterally. No wheezes, rales, or rhonchi. CARDIAC: normal S1 and S2, without murmurs, gallops, or rubs. ABDOMEN: Soft, non tender and non distended. No rebound or guarding, and no masses palpated. Bowel Sounds normal. MUSCULOSKELETAL: No edema NEUROLOGIC EXAM: Alert and oriented x3. No focal neurologic deficits SKIN: No obvious lesions - Constitutional Vitals: Temp Pulse Resp BP Pulse Ox 99.3 F 72 20 169/92 96 02/07/20 22:12 02/07/20 22:12 02/07/20 22:12 02/07/20 22:12 02/07/20 22:12 Plan Additional Instructions: Continue dexamethasone for 8 days. Continue Eliquis 2.5 mg twice a day for 7 days. Return to the ER if you start having worsening symptoms. Quarantine for 2 weeks and follow-up with PCP afterwards. Follow up with: PRIMARY CARE, [Primary Care Provider] - 3-5 Days Prescriptions: dexAMETHasone [Dexamethasone] 6 mg PO DAILY #8 tablet Apixaban [Eliquis] 2.5 mg PO BID #14 tablet
[2020-02-08 14:51] VITALS: BP 133/75
[2020-02-08] MEDS ORDERED: REMDESIVIR 100 MG in SODIUM CHLORIDE 0.9% 250ML 250 ML IV SCH (21:00)
== END 2020-02-08 17:20 | disposition home or self-care (01) | DRG 871 ==
LOC: ED 09:56 → 3A 13:48
PROVIDERS: ADMIT Internal Medicine; ATTEND Internal Medicine
PROC: XW033E5 Introduction of Remdesivir Anti-infective into Peripheral Vein, Percutaneous Approach, New Technology Group 5 (ICD-10-PCS; principal; 2020-02-07)
DX: A41.89 Other specified sepsis (principal); U07.1 COVID-19; J96.01 Acute respiratory failure with hypoxia; J12.89 Other viral pneumonia; E66.2 Morbid (severe) obesity with alveolar hypoventilation; R65.20 Severe sepsis without septic shock; Z68.33 Body mass index [BMI] 33.0-33.9, adult; Z82.49 Family history of ischemic heart disease and other diseases of the circulatory system; Z83.3 Family history of diabetes mellitus
CPT/HCPCS: 36415; 71045; 80048; 80053; 82140; 82728; 82947; 83615; 83880; 84145; 84484; 85025; 85379; 85610; 86140; 87040; 93005; 94760; G0378; J0456; J0696; J1170; J1644; J1885; J2270; J2405; J2920; J2930; J7030; J7050; U0003